=== PATIENT | female | born 1970 | race African-American/Black ===

== ENCOUNTER 2018-04-25 12:23 | Inpatient (IN) ==
[2018-04-25 14:32] LABS: Basophils # 0.1 10*3/uL (0.0-0.2); Basophils % 0.4 % (0.0-0.8); Eosinophils # 0.2 10*3/uL (0.0-0.87); Eosinophils % 1.3 % (0.00-10.9); Hematocrit 31.5 VOL% (35.7-47.0); Hemoglobin 9.2 GM/DL (12.0-16.0); Immature Granulocytes % 0.6 %; Immature Granulocytes Absolute 0.08 #; Lymphocytes % 20.8 % (21.3-54.2); Mean Corpuscular HGB Conc 29.2 GM/DL (32-36); Mean Corpuscular Hemoglobin 21 PG (27-34); Mean Corpuscular Volume 72.1 FL (87-102); Mean Platelet Volume 10.3 FL (9.6-12.0); Monocytes # 0.9 10*3/uL (0.11-0.8); Monocytes % 6.3 % (1.7-12.7); Neutrophils # 10.1 10*3/uL (1.4-7.4); Neutrophils % 70.6 % (38.7-73.9); Platelet Count 411 T/CUMM (130-400); Red Blood Count 4.37 MC/CUMM (3.8-5.5); Red Cell Distribution Width 16.2 % (9.3-17.3); White Blood Count 14.3 T/CUMM (4-12)
[2018-04-25 15:00] LABS: Albumin 3.2 G/DL (3.4-5.0); Bilirubin,Total 0.9 MG/DL (0.2-1.0); Calcium 8.4 MG/DL (8.5-10.1); Osmolality,Calculated 277.3 MOS/KG (273-304); Potassium 3.5 MMOL/L (3.5-5.1); Total Protein 7.8 G/DL (6.4-8.3)
[2018-04-26 02:32] LABS: Calcium 8.2 MG/DL (8.5-10.1); Osmolality,Calculated 278.4 MOS/KG (273-304)
[2018-04-26 02:33] LABS: Basophils % 0.3 % (0.0-0.8); Eosinophils # 0.3 10*3/uL (0.0-0.87); Eosinophils % 1.8 % (0.00-10.9); Hematocrit 30.2 VOL% (35.7-47.0); Immature Granulocytes % 0.4 %; Immature Granulocytes Absolute 0.05 #; Lymphocytes # 3.5 10*3/uL (1.4-4.0); Lymphocytes % 24.8 % (21.3-54.2); Mean Corpuscular HGB Conc 28.8 GM/DL (32-36); Mean Corpuscular Hemoglobin 21 PG (27-34); Mean Corpuscular Volume 73.7 FL (87-102); Mean Platelet Volume 10.1 FL (9.6-12.0); Monocytes # 1.1 10*3/uL (0.11-0.8); Monocytes % 7.9 % (1.7-12.7); Neutrophils # 9.1 10*3/uL (1.4-7.4); Neutrophils % 64.8 % (38.7-73.9); Platelet Count 371 T/CUMM (130-400); Red Cell Distribution Width 16.3 % (9.3-17.3)
[2018-04-26 02:45] LABS: Hemoglobin 8.7 GM/DL (12.0-16.0)
[2018-04-26 03:40] LABS: Hypochromasia Slight
[2018-04-26 03:41] LABS: Microcytosis 1+; Platelet Estimate Normal; Polychromasia Slight
[2018-04-26 03:45] LABS: Apearance,Urine Slightly Hazy (Clear); Bacteria,Urine Occasional /HPF (Few); Bilirubin,Urine Negative (Negative); Blood, Urine Negative (Negative); Glucose,Urine (UA) Negative (Negative); Ketones,Urine Negative (Negative); Mucus,Urine Occasional /LPF (Occasional); Nitrite,Urine Negative (Negative); Protein,Urine Negative; RBC,Urine 1 /HPF (0-4); Squamous Epithelial Cell,Urine Occasional /HPF (0-10); Urine Color Yellow (Yellow); Urine Specific Gravity 1.013 (1.001-1.035); Urine Urobilinogen < 2.0 EU/DL (0.2-1.0); WBC,Urine 4 /HPF (0-6)
[2018-04-26 07:09] LABS: Calcium 8.5 MG/DL (8.5-10.1); Osmolality,Calculated 273.7 MOS/KG (273-304); Potassium 3.2 MMOL/L (3.5-5.1)
[2018-04-27 06:46] LABS: Calcium 8.4 MG/DL (8.5-10.1); Potassium 4.1 MMOL/L (3.5-5.1)
[2018-04-27 09:11] LABS: Basophils # 0.1 10*3/uL (0.0-0.2); Basophils % 0.4 % (0.0-0.8); Eosinophils # 0.3 10*3/uL (0.0-0.87); Eosinophils % 1.8 % (0.00-10.9); Hematocrit 29.8 VOL% (35.7-47.0); Hemoglobin 8.5 GM/DL (12.0-16.0); Immature Granulocytes % 0.4 %; Immature Granulocytes Absolute 0.06 #; Lymphocytes # 3.2 10*3/uL (1.4-4.0); Lymphocytes % 21.5 % (21.3-54.2); Mean Corpuscular HGB Conc 28.5 GM/DL (32-36); Mean Corpuscular Hemoglobin 21 PG (27-34); Mean Corpuscular Volume 74.5 FL (87-102); Mean Platelet Volume 10.5 FL (9.6-12.0); Monocytes # 1.3 10*3/uL (0.11-0.8); Monocytes % 8.5 % (1.7-12.7); Neutrophils % 67.4 % (38.7-73.9); Platelet Count 367 T/CUMM (130-400); Red Cell Distribution Width 16.7 % (9.3-17.3); White Blood Count 14.8 T/CUMM (4-12)
[2018-04-27 09:15] LABS: Hypochromasia 1+; Platelet Estimate Adequate
[2018-04-27 09:16] LABS: Microcytosis 1+
[2018-04-30 11:19] LABS: Basophils % 0.1 % (0.0-0.8); Hematocrit 27.7 VOL% (35.7-47.0); Hemoglobin 8.1 GM/DL (12.0-16.0); Immature Granulocytes % 0.8 %; Immature Granulocytes Absolute 0.16 #; Lymphocytes # 1.9 10*3/uL (1.4-4.0); Lymphocytes % 9.2 % (21.3-54.2); Mean Corpuscular HGB Conc 29.2 GM/DL (32-36); Mean Corpuscular Hemoglobin 21 PG (27-34); Mean Corpuscular Volume 72.3 FL (87-102); Mean Platelet Volume 10.8 FL (9.6-12.0); Monocytes # 1.3 10*3/uL (0.11-0.8); Monocytes % 6.1 % (1.7-12.7); Neutrophils # 17.5 10*3/uL (1.4-7.4); Neutrophils % 83.8 % (38.7-73.9); Platelet Count 348 T/CUMM (130-400); Red Blood Count 3.83 MC/CUMM (3.8-5.5); Red Cell Distribution Width 16.5 % (9.3-17.3); White Blood Count 20.9 T/CUMM (4-12)
[2018-04-30 11:53] LABS: Albumin 2.8 G/DL (3.4-5.0); Bilirubin,Total 0.5 MG/DL (0.2-1.0); Calcium 8.5 MG/DL (8.5-10.1); Osmolality,Calculated 280.4 MOS/KG (273-304); Potassium 3.8 MMOL/L (3.5-5.1); Total Protein 6.7 G/DL (6.4-8.3)
[2018-04-30 13:34] LABS: Lymphocytes 8 % (20-55); Segmented Neutrophils 87 % (50-85); Total Cells Counted 100
[2018-04-30 13:35] LABS: Anisocytosis 1+; Elliptocytes Few; Hypochromasia 1+; Platelet Estimate Adequate
[2018-05-01 05:30] LABS: Basophils % 0.1 % (0.0-0.8); Hematocrit 34.6 VOL% (35.7-47.0); Immature Granulocytes Absolute 0.21 #; Lymphocytes # 1.4 10*3/uL (1.4-4.0); Lymphocytes % 6.6 % (21.3-54.2); Mean Corpuscular HGB Conc 30.3 GM/DL (32-36); Mean Corpuscular Hemoglobin 23 PG (27-34); Mean Corpuscular Volume 74.2 FL (87-102); Mean Platelet Volume 10.8 FL (9.6-12.0); Monocytes # 0.3 10*3/uL (0.11-0.8); Monocytes % 1.6 % (1.7-12.7); Neutrophils # 18.7 10*3/uL (1.4-7.4); Neutrophils % 90.7 % (38.7-73.9); Platelet Count 370 T/CUMM (130-400); Red Cell Distribution Width 18.5 % (9.3-17.3); White Blood Count 20.7 T/CUMM (4-12)
[2018-05-01 05:59] LABS: Red Blood Count 4.66 MC/CUMM (3.8-5.5)
[2018-05-01 06:00] LABS: Hemoglobin 10.5 GM/DL (12.0-16.0)
[2018-05-01 06:08] LABS: Hypochromasia 1+; Lymphocytes 8 % (20-55); Platelet Estimate Adequate; Segmented Neutrophils 91 % (50-85); Total Cells Counted 100
[2018-05-01 06:09] LABS: Microcytosis Slight
[2018-05-01 06:20] LABS: Calcium 8.6 MG/DL (8.5-10.1); Osmolality,Calculated 281.3 MOS/KG (273-304)
[2018-05-01 16:27] VITALS: BP 174/88
== END 2018-05-01 20:05 | disposition home or self-care (01) | DRG 392 ==
LOC: N.2E
PROVIDERS: ADMIT Family Medicine; ATTEND Family Medicine

== ENCOUNTER 2019-05-23 12:23 | Observation (INO) ==
[2019-05-23] MEDS ORDERED: ACETAMINOPHEN 325 MG TABLET PO PRN (12:56)
[2019-05-23] MEDS ORDERED: ONDANSETRON 4 MG/2 ML VIAL IV PRN (12:56)
[2019-05-23] MEDS ORDERED: SODIUM CHLORIDE 0.9% 1,000 ML IV PRN (16:54)
[2019-05-23] MEDS ORDERED: PROMETHAZINE 25 MG TABLET PO PRN (20:20)
[2019-05-23] MEDS ORDERED: ALBUTEROL/IPRATROPIUM 3 ML NEB RESP TX PRN (20:23)
[2019-05-23] MEDS ORDERED: hydrALAZINE 20 MG/1 ML VIAL IV PRN (20:23)
[2019-05-23] MEDS ORDERED: TOPIRAMATE 25 MG TABLET PO SCH (21:00)
[2019-05-23] MEDS: DOCUSATE SODIUM 100 MG CAPSULE PO SCH (22:06)
[2019-05-23] MEDS: ATORVASTATIN 40 MG TABLET PO SCH (22:07)
[2019-05-23] MEDS: cloNIDine 0.1 MG TABLET PO SCH (22:07)
[2019-05-23] MEDS: tiZANidine 4 MG TABLET PO PRN (22:07)
[2019-05-23] MEDS: busPIRone 15 MG TABLET PO SCH (22:09)
[2019-05-23] MEDS: VENLAFAXINE 75 MG TABLET PO SCH (22:09)
[2019-05-24 03:24] LABS: Apearance,Urine Slightly Hazy (Clear); Bilirubin,Urine Negative (Negative); Blood, Urine Large mg/dL (Negative); Glucose,Urine (UA) Negative (Negative); Ketones,Urine Negative (Negative); Mucus,Urine Occasional /LPF (Occasional); Nitrite,Urine Negative (Negative); Protein,Urine 100 MG/DL; RBC,Urine 7 /HPF (0-4); Urine Color Red (Yellow); Urine Specific Gravity 1.027 (1.001-1.035); Urine Urobilinogen < 2.0 EU/DL (0.2-1.0)
[2019-05-24 04:37] LABS: Basophils # 0.1 10*3/uL (0.0-0.2); Basophils % 0.5 % (0.0-0.8); Eosinophils # 0.3 10*3/uL (0.0-0.87); Hematocrit 29.8 VOL% (35.7-47.0); Immature Granulocytes % 0.5 %; Immature Granulocytes Absolute 0.08 #; Lymphocytes # 3.1 10*3/uL (1.4-4.0); Lymphocytes % 20.8 % (21.3-54.2); Mean Corpuscular HGB Conc 27.9 GM/DL (32-36); Mean Corpuscular Volume 76.2 FL (87-102); Mean Platelet Volume 9.8 FL (9.6-12.0); Monocytes % 6.9 % (1.7-12.7); NRBC # 0.02 10*3/uL; Neutrophils % 69.3 % (38.7-73.9); Platelet Count 377 T/CUMM (130-400); Red Blood Count 3.91 MC/CUMM (3.8-5.5); Red Cell Distribution Width 19.5 % (9.3-17.3); White Blood Count 14.7 T/CUMM (4-12)
[2019-05-24 05:08] LABS: Hemoglobin 8.3 GM/DL (12.0-16.0)
[2019-05-24 05:09] LABS: Hypochromasia 1+; Platelet Estimate Adequate
[2019-05-24] MEDS: oxyCODONE/ACETAMINOPHEN 5-325 MG TABLET PO PRN ×2 (08:46→20:23)
[2019-05-24] MEDS: busPIRone 15 MG TABLET PO SCH ×3 (08:47→20:23)
[2019-05-24] MEDS: LOSARTAN 50 MG TABLET PO SCH (08:47)
[2019-05-24] MEDS: VENLAFAXINE 75 MG TABLET PO SCH ×2 (08:47→20:22)
[2019-05-24] MEDS: cloNIDine 0.1 MG TABLET PO SCH ×2 (08:49→20:24)
[2019-05-24] MEDS: DOCUSATE SODIUM 100 MG CAPSULE PO SCH ×2 (08:49→20:24)
[2019-05-24] MEDS: PANTOPRAZOLE 40 MG TABLET PO SCH (08:52)
[2019-05-24] MEDS: TOPIRAMATE 25 MG TABLET PO SCH (09:02)
[2019-05-24] MEDS: tiZANidine 4 MG TABLET PO PRN ×2 (12:04→20:23)
[2019-05-24] MEDS: traMADol 50 MG TABLET PO PRN (13:36)
[2019-05-24] MEDS: MORPHINE 4 MG/1 ML VIAL IV PRN (18:51)
[2019-05-24] MEDS: ATORVASTATIN 40 MG TABLET PO SCH (20:23)
[2019-05-25] MEDS: MORPHINE 4 MG/1 ML VIAL IV PRN ×3 (00:04→14:31)
[2019-05-25] MEDS: traMADol 50 MG TABLET PO PRN (00:07)
[2019-05-25] MEDS: oxyCODONE/ACETAMINOPHEN 5-325 MG TABLET PO PRN ×2 (05:25→12:26)
[2019-05-25 07:51] LABS: Hematocrit 31.6 VOL% (35.7-47.0)
[2019-05-25 07:54] LABS: Hemoglobin 8.7 GM/DL (12.0-16.0)
[2019-05-25] MEDS: LOSARTAN 50 MG TABLET PO SCH (08:54)
[2019-05-25] MEDS: TOPIRAMATE 25 MG TABLET PO SCH (08:54)
[2019-05-25] MEDS: PANTOPRAZOLE 40 MG TABLET PO SCH (08:54)
[2019-05-25] MEDS: busPIRone 15 MG TABLET PO SCH ×2 (08:54→14:43)
[2019-05-25] MEDS: cloNIDine 0.1 MG TABLET PO SCH (08:54)
[2019-05-25] MEDS: DOCUSATE SODIUM 100 MG CAPSULE PO SCH (08:54)
[2019-05-25] MEDS: VENLAFAXINE 75 MG TABLET PO SCH (08:54)
[2019-05-25] MEDS ORDERED: SODIUM CHLORIDE 0.9% 1,000 ML IV PRN (11:41)
[2019-05-25 16:19] VITALS: BP 175/99
== END 2019-05-25 17:22 | disposition home health service (06) ==
LOC: N.4E → SUPCPDRO 15:14
PROVIDERS: ADMIT Family Medicine; ATTEND Family Medicine